=== PATIENT | male | born 1990 | race Caucasian/White ===

== ENCOUNTER 2017-03-29 17:05 | Emergency (ER) | payer BC ==
--- NOTE | 2017-03-29 18:49 | ER Document Report ---
ED Medical Screen (RME) - General Chief Complaint: Leg Pain Stated Complaint: LEG PAIN Time Seen by Provider: 03/29/17 18:42 Notes: Patient says his right foot and lower leg have been swollen and red and painful for about 2 weeks. He has not had any injury. He has had previous swelling of the left lower leg and then another time he had both the left and right leg swollen, but this time is the right leg. Has not had any fever. No injury. Nothing has bitten his foot. Patient has had a splenectomy secondary to trauma. Also history of fractured back and fractured skull. TRAVEL OUTSIDE OF THE [place] IN LAST 30 DAYS: No - Related Data Allergies/Adverse Reactions: No Known Allergies Allergy (Verified 03/29/17 17:12) Past Medical History - Social History Chew tobacco use (# tins/day): No Frequency of alcohol use: Social Drug Abuse: None Renal/ Medical History: Denies: Hx Peritoneal Dialysis Musculoskeltal Medical History: Reports Hx Arthritis, Reports Hx Musculoskeletal Deformity, Reports Hx Musculoskeletal Trauma Traumatic Medical History: Reports: Hx Fractures, Hx Spine Fracture - L 4 and 5 , Hx Spleen Laceration/Rupture Past Surgical History: Reports: Hx Abdominal Surgery - spleen removed - Immunizations Immunizations up to date: Yes Hx Diphtheria, Pertussis, Tetanus Vaccination: Yes Physical Exam - Vital signs Vitals: Temp Pulse Resp BP Pulse Ox 98.6 F 111 H 18 138/83 H 96 03/29/17 17:11 03/29/17 17:11 03/29/17 17:11 03/29/17 17:11 03/29/17 17:11 Course - Vital Signs Vital signs: Temp Pulse Resp BP Pulse Ox 98.6 F 111 H 18 138/83 H 96 03/29/17 17:11 03/29/17 17:11 03/29/17 17:11 03/29/17 17:11 03/29/17 17:11
--- NOTE | 2017-03-29 21:06 | RADIOLOGY REPORT (SQ) ---
EXAM DESCRIPTION: VENOUS UNILATERAL LOWER COMPLETED DATE/TIME: 03/29/2017 8:55 pm REASON FOR STUDY: Swelling, red, painful right lower leg COMPARISON: None. TECHNIQUE: Dynamic and static manley scale and color images acquired of the right leg venous system. S elected spectral images acquired with additional compression and augmentation maneuvers. The contrala teral common femoral vein and saphenofemoral junction were also imaged. Images stored on PACS. LIMITATIONS: None. FINDINGS: COMMON FEMORAL: Normal phasicity, compression and augmentation. No visualized echogenic ma terial on manley scale. No defects on color images. FEMORAL: Normal compression and augmentation. No visualized echogenic material on manley scale. No defe cts on color images. POPLITEAL: Normal compression, augmentation. No visualized echogenic material on manley scale. No defec ts on color images. CALF VESSELS: Normal compression, augmentation. No visualized echogenic material on manley scale. No de fects on color images. GSV and SSV: Normal compression, augmentation. No visualized echogenic material on manley scale. No def ects on color images. ANY DEEP VENOUS INSUFFICIENCY: Not evaluated. ANY EVIDENCE OF POPLITEAL CYST: No. OTHER: No other significant finding. CONTRALATERAL COMMON FEMORAL VEIN AND SAPHENOFEMORAL JUNCTION: Normal phasicity, compression and augmentation. No visualized echogenic material on manley scale. No de fects on color images. IMPRESSION: NO EVIDENCE OF DVT OR SVT IN THE RIGHT LEG. TECHNICAL DOCUMENTATION: JOB ID: [id number] [employer]- All Rights Reserved
[2017-03-29 21:24] LABS: ABSOLUTE BASOPHILS # (AUTO) 0.1 10^3/uL (0.0-0.2); ABSOLUTE EOSINOPHILS # (AUTO) 0.2 10^3/uL (0.0-0.6); ABSOLUTE LYMPHOCYTES (AUTO) 1.3 10^3/uL (0.5-4.7); ABSOLUTE MONOCYTES (AUTO) 0.7 10^3/uL (0.1-1.4); ABSOLUTE NEUT (AUTO) 6.7 10^3/uL (1.7-8.2); BASOPHILS % (AUTO) 1.1 % (0-2); EOSINOPHILS % (AUTO) 2.3 % (0-6); HEMATOCRIT 35.3 % (37.9-51.0); HEMOGLOBIN 11.2 g/dL (13.5-17.0); HGB HCT DIFFERENCE -1.7; MEAN CORPUSCULAR HEMOGLOBIN 27.5 pg (27.0-33.4); MEAN CORPUSCULAR HGB CONC 31.8 g/dL (32.0-36.0); MEAN CORPUSCULAR VOLUME 87 fl (80-97); MONOCYTES % (AUTO) 7.6 % (3-13); RED BLOOD COUNT 4.08 10^6/uL (4.35-5.55); RED CELL DISTRIBUTION WIDTH 15.5 % (11.5-14.0)
--- NOTE | 2017-03-29 21:24 | ER Document Report ---
ED Extremity Problem, Lower - General Chief Complaint: Leg Pain Stated Complaint: LEG PAIN Time Seen by Provider: 03/29/17 18:42 Notes: Patient is a 26-year-old male that comes emergency department for chief complaint of right lower leg pain and swelling. He states that this has been going on for 2 weeks. He spent the past day with his leg elevated and the redness and swelling has decreased significantly, however he still wants to be evaluated. He denies fever, chills, nausea/vomiting. He denies any injury to the area. 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 He smokes daily. Past medical history of splenectomy secondary to trauma, he is on chronic pain medication for a history of a neck fracture and head injury from trauma. TRAVEL OUTSIDE OF THE [place] IN LAST 30 DAYS: No - Related Data Allergies/Adverse Reactions: No Known Allergies Allergy (Verified 03/29/17 17:12) Past Medical History - General Information source: Patient - Social History Smoking Status: Current Every Day Smoker Chew tobacco use (# tins/day): No Frequency of alcohol use: Social Drug Abuse: None Lives with: Family Family History: Arthritis, CAD, CVA, Hyperlipidemia, Hypertension, Malignancy. denies: DM, Thyroid Disfunction Patient has suicidal ideation: No Patient has homicidal ideation: No Renal/ Medical History: Denies: Hx Peritoneal Dialysis Musculoskeltal Medical History: Reports Hx Arthritis, Reports Hx Musculoskeletal Deformity, Reports Hx Musculoskeletal Trauma Traumatic Medical History: Reports: Hx Fractures, Hx Spine Fracture - L 4 and 5 , Hx Spleen Laceration/Rupture Past Surgical History: Reports: Hx Abdominal Surgery - spleen removed - Immunizations Immunizations up to date: Yes Hx Diphtheria, Pertussis, Tetanus Vaccination: Yes Review of Systems - Review of Systems Constitutional: No symptoms reported EENT: No symptoms reported Cardiovascular: See HPI Respiratory: No symptoms reported Gastrointestinal: No symptoms reported Genitourinary: No symptoms reported Male Genitourinary: No symptoms reported Musculoskeletal: See HPI Skin: See HPI Hematologic/Lymphatic: No symptoms reported Neurological/Psychological: No symptoms reported Physical Exam - Vital signs Vitals: Temp Pulse Resp BP Pulse Ox 98.6 F 111 H 18 138/83 H 96 03/29/17 17:11 03/29/17 17:11 03/29/17 17:11 03/29/17 17:11 03/29/17 17:11 Interpretation: Normal - General General appearance: Appears well, Alert In distress: None - HEENT Head: Normocephalic, Atraumatic Eyes: Normal Pupils: PERRL - Respiratory Respiratory status: No respiratory distress Chest status: Nontender Breath sounds: Normal Chest palpation: Normal - Cardiovascular Rhythm: Regular. No: Tachycardia Heart sounds: Normal auscultation, S1 appreciated, S2 appreciated Murmur: No - Abdominal Inspection: Normal Distension: No distension Bowel sounds: Normal Tenderness: Nontender Organomegaly: No organomegaly - Back Back: Normal, Nontender - Extremities General upper extremity: Normal inspection, Nontender, Normal color, Normal ROM , Normal temperature General lower extremity: Other - No overt Homans sign in the right leg compared to the left, there is slight swelling below the knee on the right leg compared to left, mild erythema and warmth, no induration or fluctuance, normal pulse and sensation, no pain out of proportion. - Neurological Neuro grossly intact: Yes Cognition: Normal Orientation: AAOx4 Sherwood Coma Scale Eye Opening: Spontaneous Caleb Coma Scale Verbal: Oriented Caleb Coma Scale Motor: Obeys Commands Sherwood Coma Scale Total: 15 Speech: Normal Motor strength normal: LUE, RUE, LLE, RLE Sensory: Normal - Psychological Associated symptoms: Normal affect, Normal mood - Skin Skin Temperature: Warm Skin Moisture: Dry Skin Color: Normal Course - Re-evaluation Re-evalutation: Patient with mild redness and warmth of the right lower extremity compared to the left, mild swelling, no pitting edema. No significant tenderness, no induration, fluctuance, or overt erythema. No fever, chills, no leukocytosis, patient was initially mildly tachycardic but this resolved. Venous Doppler negative for any acute abnormality. Patient states he has had similar swelling of the left and right before although this is the worst he has had on the right. This is improved some after he spent the day elevating the leg per patient. Patient will be covered for potential cellulitis, patient is Frederic on pain management, discussed return precautions in detail, discussed results in detail, patient states satisfaction and agreement. - Vital Signs Vital signs: Temp Pulse Resp BP Pulse Ox 97.4 F 97 17 132/85 H 100 03/29/17 22:18 03/29/17 22:18 03/29/17 22:18 03/29/17 22:18 03/29/17 22:18 - Laboratory Result Diagrams: 03/29/17 21:00 03/29/17 21:00 Laboratory results interpreted by me: 03/29/17 03/29/17 21:00 21:00 RBC 4.08 L Hgb 11.2 L Hct 35.3 L MCHC 31.8 L RDW 15.5 H Plt Count 579 H BUN 4 L Glucose 64 L AST 15 L - Diagnostic Test Radiology reviewed: Reports reviewed Discharge - Discharge Clinical Impression: Swelling of lower extremity Condition: Stable Disposition: HOME, SELF-CARE Additional Instructions: Ultrasound does not show a blood clot or any obvious abnormality. Examination is consistent with soft tissue swelling and what appears to be mild cellulitis infection. Take the doxycycline antibiotic as directed, elevate your leg, you may need to get compression stockings for intermittent swelling of your feet. Follow-up with primary care for additional management. Stop smoking (worsens the abilities of your blood vessels to perform their function) Return to emergency department for any concerning or worsening symptoms including increased swelling, increased redness, fever, or any other concerning symptoms. Prescriptions: Doxycycline Hyclate 100 mg PO BID #14 capsule
[2017-03-29 21:45] LABS: ALANINE AMINOTRANSFERASE 26 U/L (21-72); ALBUMIN 4.4 g/dL (3.5-5.0); ALKALINE PHOSPHATASE 100 U/L (38-126); ANION GAP 15 (5-19); ASPARTATE AMINO TRANSFERASE 15 U/L (17-59); BILIRUBIN,DIRECT 0.4 mg/dL (0.0-0.4); BILIRUBIN,TOTAL 0.4 mg/dL (0.2-1.3); BLOOD UREA NITROGEN 4 mg/dL (7-20); CALCIUM 9.7 mg/dL (8.4-10.2); CARBON DIOXIDE 25 mmol/L (22-30); CHLORIDE 101 mmol/L (98-107); CREATININE RESULT 0.78 mg/dL (0.52-1.25); GLUCOSE 64 mg/dL (75-110); POTASSIUM 4.2 mmol/L (3.6-5.0); SODIUM 141.1 mmol/L (137-145); TOTAL PROTEIN 7.7 g/dL (6.3-8.2)
[2017-03-29] MEDS ORDERED: DOXYCYCLINE HYCLATE 100 MG TABLET PO ONE (22:11)
[2017-03-29] MEDS ORDERED: HYDROCODONE/ACETAMINOPHEN 5-325 MG 6 TAB/DSPK PO PRN (22:12)
[2017-03-29 22:34] VITALS: BP 132/85
== END 2017-03-29 22:33 | disposition home or self-care (01) ==
LOC: ER 17:05
DX: M79.89 Other specified soft tissue disorders (principal); M79.604 Pain in right leg; F17.200 Nicotine dependence, unspecified, uncomplicated
CPT/HCPCS: 36415; 80053; 85025; 85610; 87040; 93971; 99284